=== PATIENT | male | born 1970 | race Caucasian/White ===

== ENCOUNTER 2024-02-03 06:57 | Emergency (ER) | payer OTHER ==
[2024-02-03] MEDS ORDERED: KETOROLAC 30 MG/ML INJ ONE (07:16)
[2024-02-03] MEDS ORDERED: NA CHLORIDE 0.9% 1,000 ML ONE (07:16)
[2024-02-03 07:25] LABS: Absolute Basophils 0.1 K/uL (0-0.5); Absolute Eosinophils 0.2 K/uL (0-0.5); Absolute Lymphocytes (CBC) 1.6 K/uL (0.7-4.9); Absolute Monocytes 0.5 K/uL (0.1-1.3); Absolute Neutrophil 3.4 K/uL (1.8-8.0); Basophils % 1.2 % (0-1.3); Eosinophils % 3.7 % (0-4.4); Hematocrit 33.5 % (39.6-49.0); Hemoglobin 10.3 g/dL (13.6-17.9); Lymphocytes % 27.1 % (15.3-44.8); MCH 20.4 pg (27.0-35.0); MCHC 30.6 g/dL (32.0-36.0); MCV 66.7 fL (80-100); MPV 6.8 fL (7.6-11.3); Platelets 377 thou/uL (152-406); RBC Red Blood Cell Count 5.03 M/uL (4.33-5.43); Red Cell Distribution Width 19.5 % (12.1-15.2)
--- NOTE | 2024-02-03 07:45 | RAD REPORT ---
EXAM DESCRIPTION: CT - Abdomen Pelvis Wo Contrast - 02/03/2024 7:18 am CLINICAL HISTORY: Abdominal pain. FLANK PAIN COMPARISON: CT-STONE PROTOCOL dated 06/24/2011 TECHNIQUE: CT imaging of the abdomen and pelvis was performed without contrast. Solid organ, bowel a nd vascular assessment is limited due to lack of IV and oral contrast. All CT scans are performed using dose optimization technique as appropriate and may include automated exposure control or mA/KV adjustment according to patient size. FINDINGS: The lower lung dejesus are clear.Moderate hiatal hernia. The liver, spleen, pancreas, adrenal glands are within normal limits for a limited non-contrast exami nation.6 mm calculus is present proximal left ureter resulting in mild left hydronephrosis. Additiona l calculus is seen midpole left kidney measuring 6 mm. No bowel obstruction, free air, free fluid or abscess. Small fat containing umbilical hernia. Promine nt diverticulosis coli seen without diverticulitis. The appendix is normal. The osseous structures are within normal limits. IMPRESSION: 6 mm calculus proximal left ureter resulting in mild left hydronephrosis. 6 mm stone mid pole left kidney. A limited non-contrast examination was performed as detailed.
[2024-02-03 07:46] LABS: Albumin 3.5 g/dL (3.4-5.0); Albumin/Globulin Ratio 1.3 (1.1-1.8); Anion Gap 9.3 mEq/L (5.0-15.0); Bilirubin Total 0.3 mg/dL (0.2-1.0); Globulin 2.8 g/dL (2.3-3.5); Potassium 3.3 mEq/L (3.5-5.1); Protein, Total 6.3 g/dL (6.4-8.2)
[2024-02-03 08:38] LABS: Anisocytosis 2+; Blood Morphology Comment NOTED (NOT SEEN); Microcytosis 2+; Ovalocytes 1+; Platelet Estimate ADEQ; White Blood Cell Scan OK (OK)
[2024-02-03 08:44] LABS: Specific Gravity 1.018 (1.005-1.030); Sqamous Epithelial None Seen /HPF (None Seen); Urine Bacteria None Seen /HPF (<20); Urine Bilirubin NEGATIVE (Negative); Urine Blood 3+ (Negative); Urine Clarity Turbid (Clear); Urine Color Light-Yellow (Yellow); Urine Culture Reflex Order NOT NEEDED; Urine Glucose NEGATIVE (Negative); Urine Ketones NEGATIVE (Negative); Urine Microscopic Reflex YN ORDER UMIC; Urine Mucus Slight /HPF (None Seen); Urine Nitrite NEGATIVE (Negative); Urine Protein TRACE (Negative); Urine RBC >50 /HPF (None Seen); Urine Urobilinogen Normal (Normal); Urine WBC <5 /HPF (<5)
--- NOTE | 2024-02-03 08:58 | ER ---
Nurse's Notes [facility] Name: Edward Gallo Age: 53 yrs Sex: Male : 1970 Arrival Date: 02/03/2024 Time: 06:57 Bed 18 Private MD: Diagnosis: Kidney stone;Left flank pain Presentation: 02/02 07:03 Coronavirus screen: At this time, the client does not indicate any symptoms associated iw with coronavirus-19. Ebola Screen: No symptoms or risks identified at this time. Initial Sepsis Screen: Does the patient meet any 2 criteria? No. Patient's initial sepsis screen is negative. Does the patient have a suspected source of infection? No. Patient's initial sepsis screen is negative. Risk Assessment: Do you want to hurt yourself or someone else? Patient reports no desire to harm self or others. 07:03 Acuity: MARIA ANTONIA 3 iw 07:03 Method Of Arrival: Ambulatory iw 07:03 Chief complaint: Patient states: Left sided flank pain, pt states "I've had kidney rs5 stones before and this very much feels like one". 07:03 Onset of symptoms was January 24, 2024. rs5 Historical: - Allergies: 07:03 Codeine; iw - Home Meds: 07:29 amlodipine oral daily [Active]; Metoprolol Tartrate Oral [Active]; Simvastatin Oral iw [Active]; Plavix 75 mg Oral tablet [Active]; 07:33 Lisinopril Oral daily [Active]; iw - PMHx: 07:03 Hyperlipidemia; Hypertension; Nerve damage; kidney stones; iw - PSHx: 07:29 cardiac stents; iw - Immunization history:: Adult Immunizations up to date. - Infectious Disease History:: Denies. - Social history:: Smoking status: Patient denies any tobacco usage or history of. Screenin:20 [facility] ED Fall Risk Assessment (Adult) History of falling in the last 3 months, iw including since admission No falls in past 3 months (0 pts) Confusion or Disorientation No (0 pts) Intoxicated or Sedated No (0 pts) Impaired Gait No (0 pts) Mobility Assist Device Used No (0 pt) Altered Elimination No (0 pt) Score/Fall Risk Level 0 - 2 = Low Risk Oriented to surroundings, Maintained a safe environment. Abuse screen: Denies threats or abuse. Denies injuries from another. Nutritional screening: No deficits noted. Tuberculosis screening: No symptoms or risk factors identified. Assessment: 07:10 General: Appears in no apparent distress. uncomfortable, Behavior is calm, cooperative. iw Pain: Complains of pain in left low back and left mid back Pain currently is 7 out of 10 on a pain scale. Neuro: Level of Consciousness is awake, alert, obeys commands, Oriented to person, place, time, situation, Moves all extremities. Full function. Cardiovascular: Patient's skin is warm and dry. GI: Abd is soft and non tender X 4 quads. Reports. : Reports pain in left flank(s). Derm: Skin is intact, is healthy with good turgor. 08:15 Reassessment: Patient and/or family updated on plan of care and expected duration. Pain iw level reassessed. Patient is alert, oriented x 3, equal unlabored respirations, skin warm/dry/pink. Patient states feeling better. 09:16 Reassessment: No changes from previously documented assessment. rs5 Vital Signs: 07:31 BP 140 / 82; Pulse 69; Resp 16; Pulse Ox 100% ; Weight 133.81 kg; Height 5 ft. 11 in. ; iw Pain 7/10; 09:30 BP 133 / 85; Pulse 60; Resp 18; Pulse Ox 98% on R/A; nj1 07:31 Body Mass Index 41.14 (133.81 kg, 180.34 cm) iw 07:31 Pain Scale: Adult iw ED Course: 06:59 Patient arrived in ED. jj6 07:00 Yeyo Armando DO is Attending Physician. ms3 07:03 Kayy Luong, RN is Primary Nurse. iw 07:03 Triage completed. iw 07:14 Inserted saline lock: 20 gauge in left antecubital area, using aseptic technique. Blood iw collected. Flushed with 10 mL NS. 07:19 Arm band placed on. iw 07:20 CT Abd/Pelvis - Without Contrast In Process Unspecified. EDMS 07:21 Patient has correct armband on for positive identification. iw 09:16 No provider procedures requiring assistance completed. IV discontinued, intact, rs5 bleeding controlled, No redness/swelling at site. Pressure dressing applied. Administered Medications: 07:26 Drug: NS 0.9% IV 1000 ml IV at 1 bolus Per protocol; 1000 mL bolus Route: IV; Rate: 1 iw bolus; Site: left antecubital; 09:30 Follow up: Response: No adverse reaction; IV Status: Order to discontinue infusion; IV nj1 Intake: 900ml 07:26 Drug: TORadol - Ketorolac IVP 15 mg IVP once Route: IVP; Site: left antecubital; iw 09:30 Follow up: Response: No adverse reaction; Pain is decreased nj1 09:32 Drug: Tamsulosin PO Extended Release 24 hour Capsule 0.4 mg PO once Route: PO; nj1 09:51 Follow up: Response: No adverse reaction nj1 Medication: 07:20 VIS not applicable for this client. iw Intake: 09:30 IV: 900ml; Total: 900ml. nj1 Outcome: 08:57 Discharge ordered by MD. ms3 09:16 Discharged to home ambulatory, with family, rs5 09:16 Condition: stable 09:16 Discharge instructions given to patient, family, Instructed on discharge instructions, follow up and referral plans. medication usage, Demonstrated understanding of instructions, follow-up care, medications, Prescriptions given X 1, 09:33 Patient left the ED. nj1 Signatures: Dispatcher [employer] EDMS Kayy Luong RN RN iw Yeyo Armando DO DO ms3 Kelle Crooks jj6 Tomer Aranda, MELINA RN rs5 Radha Harmon RN RN nj1 Corrections: (The following items were deleted from the chart) 07:31 07:29 PMHx: Hypertensive disorder; iw iw 09:18 07:03 Chief complaint: Patient states: right sided flank pain rs5 rs5 09:28 08:15 Reassessment: Patient and/or family updated on plan of care and expected iw duration. Pain level reassessed. Patient is alert, oriented x 3, equal unlabored respirations, skin warm/dry/pink. Patient states feeling better. rs5
--- NOTE | 2024-02-03 08:58 | EDPHYS ---
Physician Documentation [facility] Name: Edward Gallo Age: 53 yrs Sex: Male : 1970 Arrival Date: 02/03/2024 Time: 06:57 Bed 18 Private MD: ED Physician Yeyo Armando HPI: 02/02 09:23 This 53 yrs old Male presents to ER via Ambulatory with complaints of Possible Kidney ms3 Stone. 09:23 53-year-old male with past medical history of hyperlipidemia, hypertension, kidney ms3 stones presents to the emergency department for left flank pain. Patient rates the pain a 9/10. Patient denies any alleviating or inciting factors. Patient states he has a history of kidney stones and this feels similar. He denies fevers or chills. Historical: - Allergies: 07:03 Codeine; iw - Home Meds: 07:29 amlodipine oral daily [Active]; Metoprolol Tartrate Oral [Active]; Simvastatin Oral iw [Active]; Plavix 75 mg Oral tablet [Active]; 07:33 Lisinopril Oral daily [Active]; iw - PMHx: 07:03 Hyperlipidemia; Hypertension; Nerve damage; kidney stones; iw - PSHx: 07:29 cardiac stents; iw - Immunization history:: Adult Immunizations up to date. - Infectious Disease History:: Denies. - Social history:: Smoking status: Patient denies any tobacco usage or history of. ROS: 09:23 Constitutional: Negative for fever, and chills. Neck: Negative for injury, pain, and ms3 swelling, Cardiovascular: Negative for chest pain, and palpitations. Respiratory: Negative for shortness of breath, cough, wheezing, and pleuritic chest pain, Abdomen/GI: Negative for abdominal pain, nausea, vomiting, diarrhea, and constipation, 09:23 Back: Positive for flank pain, on the left, Exam: 09:23 Constitutional: This is a well developed, well nourished patient who is awake, alert, ms3 and in no acute distress. Neck: Trachea midline, no cervical lymphadenopathy. Supple, full range of motion without nuchal rigidity, or vertebral point tenderness. No Meningismus. Chest/axilla: Normal chest wall appearance and motion. Nontender with no deformity. Cardiovascular: Regular rate and rhythm with a normal S1 and S2. No gallops, murmurs, or rubs. Normal PMI, no JVD. No pulse deficits. Respiratory: Lungs have equal breath sounds bilaterally, clear to auscultation and percussion. No rales, rhonchi or wheezes noted. No increased work of breathing, no retractions or nasal flaring. Abdomen/GI: Soft, non-tender, with normal bowel sounds. No distension or tympany. No guarding or rebound. No evidence of tenderness throughout. Back: No spinal tenderness. No costovertebral tenderness. Full range of motion. Skin: Warm, dry with normal turgor. Normal color with no rashes, no lesions, and no evidence of cellulitis. Vital Signs: 07:31 BP 140 / 82; Pulse 69; Resp 16; Pulse Ox 100% ; Weight 133.81 kg; Height 5 ft. 11 in. ; iw Pain 12/27; 09:30 BP 133 / 85; Pulse 60; Resp 18; Pulse Ox 98% on R/A; nj1 07:31 Body Mass Index 41.14 (133.81 kg, 180.34 cm) iw 07:31 Pain Scale: Adult iw MDM: 07:07 Patient medically screened. ms3 09:23 Differential diagnosis: nephrolithiasis, pyelonephritis, UTI. Data reviewed: vital ms3 signs, nurses notes, lab test result(s), radiologic studies, and as a result, I will discharge patient. I considered the following discharge prescriptions or medication management in the emergency department Medications were administered in the Emergency Department. See MAR. Independent interpretation of the following test(s) in the Emergency Department CT Scan: My interpretation is CT abdomen pelvis without IV contrast reviewed by me reveals stone left ureter.. Care significantly affected by the following chronic conditions: Diabetes, Hypertension. Counseling: I had a detailed discussion with the patient and/or guardian regarding the historical points, exam findings, and any diagnostic results supporting the discharge/admit diagnosis, lab results, the need for outpatient follow up, to return to the emergency department if symptoms worsen or persist or if there are any questions or concerns that arise at home. Special discussion: I discussed with the patient/guardian in detail that at this point there is no indication for admission to the hospital. It is understood, however, that if the symptoms persist or worsen the patient needs to return immediately for re-evaluation. ED course: Discussed labs and CT scan with patient. Patient to follow-up with his primary care physician in 2 to 3 days regarding anemia and kidney stone. Discussed with patient necessity to follow-up with urology regarding kidney stone. He understands and agrees with plan. All questions were answered. Return precautions discussed include worsening symptoms, or any other concerns. On reevaluation patient symptoms improved, patient is alert and oriented x 4, no apparent distress, nontoxic-appearing, speaking full sentences.. 02/02 07:07 Order name: CBC with Diff; Complete Time: 08:56 ms3 02/02 07:07 Order name: CMP; Complete Time: 07:49 ms3 02/02 07:07 Order name: Urinalysis w/ reflexes; Complete Time: 08:56 ms3 02/02 08:38 Order name: CBC Smear Scan; Complete Time: 08:56 EDMS 02/02 07:07 Order name: CT Abd/Pelvis - Without Contrast; Complete Time: 07:49 ms3 02/02 07:07 Order name: IV Saline Lock; Complete Time: 07:14 ms3 02/02 07:07 Order name: Labs collected and sent; Complete Time: 07:14 ms3 Administered Medications: 07:26 Drug: NS 0.9% IV 1000 ml IV at 1 bolus Per protocol; 1000 mL bolus Route: IV; Rate: 1 iw bolus; Site: left antecubital; 09:30 Follow up: Response: No adverse reaction; IV Status: Order to discontinue infusion; IV nj1 Intake: 900ml 07:26 Drug: TORadol - Ketorolac IVP 15 mg IVP once Route: IVP; Site: left antecubital; iw 09:30 Follow up: Response: No adverse reaction; Pain is decreased nj1 09:32 Drug: Tamsulosin PO Extended Release 24 hour Capsule 0.4 mg PO once Route: PO; nj1 09:51 Follow up: Response: No adverse reaction nj1 Disposition Summary: 02/03/24 08:57 Discharge Ordered Notes: Location: Home ms3 Condition: Stable ms3 Diagnosis - Kidney stone ms3 - Left flank pain ms3 Followup: ms3 - With: Private Physician - When: 2 - 3 days - Reason: Recheck today's complaints Discharge Instructions: - Discharge Summary Sheet ms3 - Kidney Stones, [id number] ms3 Forms: - Medication Reconciliation Form ms3 - Antibiotic Education ms3 - Prescription Opioid Use ms3 - Patient Portal Instructions ms3 - Leadership Thank You Letter ms3 Prescriptions: - ketorolac 10 mg Oral tablet - take 1 tablet ORAL route every 6 hours for 5 days; 20 tablet; Refills: 0, ms3 Product Selection Permitted - tamsulosin 0.4 mg Oral capsule - take 1 capsule ORAL route every 24 hours; 20 capsule; Refills: 0, Product ms3 Selection Permitted Signatures: Dispatcher [employer] Kayy Chan, RN RN Yeyo Armando, DO ms3 Tomer Aranda RN RN rs5 Radha Harmon RN RN nj1 Corrections: (The following items were deleted from the chart) 07:08 07:08 Abdomen Pelvis Wo [id number].[id number].BRZ ordered. [facility] EDMS 07:31 07:29 PMHx: Hypertensive disorder; [facility]
[2024-02-03] MEDS ORDERED: TAMSULOSIN 0.4 MG SR CAP ONE (09:24)
[2024-02-03 09:55] VITALS: BP 140/82; O2SAT 100
== END 2024-02-03 09:33 | disposition home or self-care (01) ==
LOC: ER 06:57
DX: N20.0 Calculus of kidney (principal); Z87.442 Personal history of urinary calculi; Z95.818 Presence of other cardiac implants and grafts; Z79.01 Long term (current) use of anticoagulants
CPT/HCPCS: 96361; 85025; 81001; 36415; 80053; 74176; 96374; 99284; J7030